=== PATIENT | male | born 1995 | race Caucasian/White ===

== ENCOUNTER 2020-11-03 18:57 | Emergency (ER) | payer SELFPAY ==
[2020-11-03 19:03] VITALS: BP 147/85; PULSE 70; RESP 16; TEMP 36.7; O2SAT 98
--- NOTE | 2020-11-03 19:18 | PC.NURSE ---
Report received from SMITHA Pandey. Assumed care of patient at this time.
[2020-11-03 20:20] VITALS: BP 110/57; PULSE 65; RESP 18; O2SAT 98
--- NOTE | 2020-11-03 20:57 | ED.GENADULT ---
HPI - General Adult General Chief complaint: Unspecified Stated complaint: prescription refill Time Seen by Provider: 11/03/20 19:06 Source: patient and family Mode of arrival: ambulatory Limitations: no limitations History of Present Illness HPI narrative: Patient presents needing refill of lisinopril 5 mg daily and Zoloft 100 mg twice daily. Patient states that he is now attempting to establish care with a new primary after from the . Patient states that he has noticed that his blood pressures have been elevated since being without his medications. He is working to establish care with a civilian PCP. he denies any other symptoms or concerns. Denies SI or HI. Related Data Home Medications Medication Instructions Recorded Confirmed lisinopril 5 mg 11/03/20 sertraline [Zoloft] mg 11/03/20 Allergies Allergy/AdvReac Type Severity Reaction Status Date / Time No Known Allergies Allergy Verified 11/03/20 19:06 Review of Systems Review of Systems: Narrative: CONSTITUTIONAL: Denies fever, chills, or sweats. EYES: Denies visual changes, redness, or discharge. ENT: Denies rhinorrhea, congestion, sore throat, or otalgia. CARDIOVASCULAR: Denies chest pain, palpitations, or edema. RESPIRATORY: Denies cough or dyspnea. GASTROINTESTINAL: Denies abdominal pain, nausea, vomiting, or diarrhea. GENITOURINARY: Denies dysuria or hematuria. SKIN: Denies rash or itching. MUSCULOSKELETAL: Denies back pain, joint pain, or myalgia. NEUROLOGIC: Denies headache, numbness, dizziness, or weakness. PSYCHIATRIC: Denies anxiety or depression. Exam Narrative: Exam Narrative: GENERAL: Well-appearing, well-nourished, and in no acute distress. HEAD: Normocephalic, atraumatic. EYES: PERRLA and EOMI. ENT: Nares clear, no rhinorrhea or epistaxis. Mucous membranes moist. Oropharynx without tonsillar hypertrophy exudate or other lesions. Bilateral TMs pearly bateman nonbulging NECK: Supple. No adenopathy or masses. CHEST: Clear to auscultation. No respiratory distress. No wheezes rales or rhonchi HEART: Regular rate and rhythm. No murmur heard. Normal peripheral pulses. ABDOMEN: Soft, nontender, nondistended, normal active bowel sounds. EXTREMITIES: Normal range of motion. No edema. SKIN: Warm, dry, no rash. NEURO: No focal deficits. Alert and oriented x3. PSYCH: Normal mood and affect. Course Vital Signs Vital signs: Vital Signs Temperature 98.0 F 11/03/20 19:03 Pulse Rate 70 11/03/20 19:03 Respiratory Rate 16 11/03/20 19:03 Blood Pressure 147/85 H 11/03/20 19:03 Pulse Oximetry 98 11/03/20 19:03 Temperature 98.0 F 11/03/20 19:03 Pulse Rate 65 11/03/20 20:20 Respiratory Rate 18 11/03/20 20:20 Blood Pressure 110/57 L 11/03/20 20:20 Pulse Oximetry 98 11/03/20 20:20 Medical Decision Making MDM Narrative Medical decision making narrative: Discussed with patient that I will not prescribe a long course of his medications however I will give him a few days worth to get in next week in order to establish with a primary care who can provide further supervision and refills of medications. Patient instructed to return to emergency department if he has any emergent symptoms. Vital Signs Vital Signs: Vital Signs Temperature 98.0 F 11/03/20 19:03 Pulse Rate 70 11/03/20 19:03 Respiratory Rate 16 11/03/20 19:03 Blood Pressure 147/85 H 11/03/20 19:03 Pulse Oximetry 98 11/03/20 19:03 Temperature 98.0 F 11/03/20 19:03 Pulse Rate 65 11/03/20 20:20 Respiratory Rate 18 11/03/20 20:20 Blood Pressure 110/57 L 11/03/20 20:20 Pulse Oximetry 98 11/03/20 20:20 Discharge Plan Discharge Clinical Impression: Medication refill Patient Disposition: Home, Self-Care Condition: Stable Instructions: Antibiotic Form Additional Instructions: Follow-up with primary care for further management of your medical conditions and medication refills. Return to emerge department
== END 2020-11-03 20:16 | disposition home or self-care (01) ==
PROVIDERS: Emergency Provider Emergency Medicine
DX: I10 Essential (primary) hypertension (principal)
CPT/HCPCS: 99281

== ENCOUNTER 2020-12-01 13:24 | Emergency (ER) | payer OTHER, MEDICAID, SELFPAY ==
[2020-12-01 14:11] VITALS: BP 125/81; PULSE 70; RESP 18; TEMP 36.7; O2SAT 100
--- NOTE | 2020-12-01 14:18 | ECG_ITS ---
Measurements Intervals [place] Rate: 69 P: 148 MN: 121 QRS: 134 QRSD: 174 T: 152 QT: 471 QTc: 508 Interpretive Statements ECTOPIC ATRIAL RHYTHM RIGHT AXIS DEVIATION LEFT BUNDLE BRANCH BLOCK ABNORMAL ECG Electronically Signed On 12-01-2020 14:40:59 CDT by Ajay Faith D.O.
[2020-12-01 14:36] LABS: Basophils Absolute Auto 0.1 K/mm3 (0.0-0.1); Basophils Percent Auto 0.7 % (0.2-1.2); Eosinophils Absolute Auto 0.3 K/mm3 (0-0.3); Eosinophils Percent Auto 4.1 % (0-4.4); Hematocrit 43.7 % (42.0-52.0); Hemoglobin 14.7 g/dL (14.0-18.0); Immature Granulocyte Absolute 0.03 K/mm3 (0.00-0.031); Immature Granulocyte Percent A 0.4 % (0-0.5); Lymphocytes Absolute Auto 2.21 K/mm3 (0.9-3.2); Lymphocytes Percent Auto 32.7 % (18.3-44.2); Mean Corpuscular HGB Conc 33.6 g/dl (32-36); Mean Corpuscular Volume 92.2 fl (80-100); Mean Platelet Volume 9.9 fl (7.4-10.4); Monocytes Absolute Auto 0.6 K/mm3 (0.1-0.6); Monocytes Percent Auto 8.1 % (2.6-8.5); Neutrophils Absolute Auto 3.6 K/mm3 (1.3-6.7); Platelet Count Result 208 k/mm3 (150-375); Red Blood Count 4.74 M/mm3 (4.6-6.20); Red Cell Distribution Width 12.9 % (11.5-14.5); White Blood Count 6.8 K/mm3 (4.5-10.0)
[2020-12-01 14:50] LABS: Anion Gap 5 mmol/L (8-16); Blood Urea Nitrogen 11 mg/dL (9-20); Carbon Dioxide 31 mmol/L (22-30); Chloride 105 mmol/L (98-107); Estimated CRCL calculation 85 ml/min; Estimated Glomerular Filt Rate > 60; Glucose 100 mg/dL (75-110); Potassium 4.4 mmol/L (3.4-5.0); Sodium 141 mmol/L (137-145)
[2020-12-01 16:00] VITALS: BP 116/65; PULSE 69; PULSE 73; RESP 17; O2SAT 97
[2020-12-01 16:54] LABS: Alanine Aminotransferase 81 U/L (4-50); Albumin Level 4.7 g/dL (3.5-5.1); Alkaline Phosphatase 54 U/L (38-126); Aspartate Amino Transferase 61 U/L (17-59); Bilirubin,Total 0.3 mg/dL (0.2-1.3)
--- NOTE | 2020-12-01 17:12 | ED.GENADULT ---
HPI - General Adult General Chief complaint: Syncope Stated complaint: chest pain Time Seen by Provider: 12/01/20 16:29 Source: patient and RN notes reviewed Mode of arrival: ambulatory Limitations: no limitations History of Present Illness HPI narrative: Patient is 25 years old white male presented to the ED with sudden onset of chest pain, dizziness and confusion lasting for few seconds. Patient ran out of Atarax, lisinopril and sertraline 1 and half month ago. Patient reports a lot of stress over the last 1 and half month. Currently patient is asymptomatic. Patient denies any fever, chills, nausea, vomiting, shortness of breath, headache or palpitation. Related Data Home Medications Medication Instructions Recorded Confirmed lisinopril 5 mg 11/03/20 sertraline [Zoloft] mg 11/03/20 Allergies Allergy/AdvReac Type Severity Reaction Status Date / Time No Known Allergies Allergy Verified 11/03/20 19:06 Review of Systems Review of Systems: Narrative: CONSTITUTIONAL: Denies fever, chills, or sweats. EYES: Denies visual changes, redness, or discharge. ENT: Denies rhinorrhea, congestion, sore throat, or otalgia. CARDIOVASCULAR: Denies chest pain, palpitations, or edema. RESPIRATORY: Denies cough or dyspnea. GASTROINTESTINAL: Denies abdominal pain, nausea, vomiting, or diarrhea. GENITOURINARY: Denies dysuria or hematuria. SKIN: Denies rash or itching. MUSCULOSKELETAL: Denies back pain, joint pain, or myalgia. NEUROLOGIC: Denies headache, numbness, or weakness. PSYCHIATRIC: Depression and anxiety PMFSH Social History Social History Gender identity (if verbalized by the patient): Male Exam Narrative: Exam Narrative: General appearance: Well-developed, well-nourished Skin: Normal color Head: Normocephalic, nontraumatic Eyes: Clear conjunctiva ENT: Oropharynx normal, ears normal, nose normal Neck: Supple, nontender Chest and respiratory: Airway patent, no respiratory distress, no accessory muscle use Heart: Regular rate/rhythm Abdomen: Soft, nontender, no organomegaly, quiet bowel sounds Vascular: Normal peripheral pulses, normal capillary refill. Musculoskeletal: Normal range of motion, nontender back Neurologic: Alert and oriented ?3, [employer] is normal as tested, no gross motor deficit Course Course Emergency Course: Stable Reevaluation(s) Reevaluation #1: Patient was offered to be hospitalized overnight because of the abnormal finding on his EKG. 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 Currently patient is asymptomatic. Patient also declined to wait for the rest of his blood work-up and chest x-ray. Date: 12/01/20 Time: 17:43 Vital Signs Vital signs: Vital Signs Temperature 36.7 C 12/01/20 14:11 Pulse Rate 70 12/01/20 14:11 Respiratory Rate 18 12/01/20 14:11 Blood Pressure 125/81 12/01/20 14:11 Pulse Oximetry 100 12/01/20 14:11 Temperature 36.7 C 12/01/20 14:11 Pulse Rate 70 12/01/20 14:11 Respiratory Rate 18 12/01/20 14:11 Blood Pressure 125/81 12/01/20 14:11 Pulse Oximetry 100 12/01/20 14:11 Medical Decision Making MDM Narrative Medical decision making narrative: Patient presents with sudden onset of chest pain, lightheadedness and dizziness. Anxiety-like symptoms is my concern. Patient EKG showed normal sinus rhythm at 69 bpm with left bundle branch block and LVH criteria. No old EKG for comparison. The EKG abnormality will put the patient at risk for tachyarrhythmia like V. tach or V. fib. Patient is telling me that he knew that he have left bundle branch block on his EKG and he does not uribe
== END 2020-12-01 17:46 | disposition left against medical advice (07) ==
PROVIDERS: Emergency Provider Emergency Medicine
DX: F41.9 Anxiety disorder, unspecified (principal); Z91.14 Patient's other noncompliance with medication regimen; I44.7 Left bundle-branch block, unspecified; R94.31 Abnormal electrocardiogram [ECG] [EKG]
CPT/HCPCS: 36415; 80048; 80076; 85025; 93005; 99284